=== PATIENT | male | born 1945 | race Caucasian/White ===

== ENCOUNTER → 2021-02-19 | Outpatient (CLI) | payer OTHER ==
--- NOTE | 2021-02-19 12:13 | 2DMMODE ---
[facility] [place] [address] 2 D/M-MODE ECHOCARDIOGRAM Name: MARLIN COVINGTON Room #: REG [facility] Vitor#: [id number] Admission: 02/19/21 Attend Phys: Cb Lopez Discharge: Date of : 45 Report #: [id number] THIS REPORT FOR: cc: Miguel Zelaya MD, Michael D. MD Santiago, Patrick MD [facility] ~ APPROVED REPORT Study performed: 02/19/2021 10:33:12 EXAM: Comprehensive 2D, Doppler, and color-flow Echocardiogram Patient Location: Out-Patient Room #: 2 Status: routine BSA: 2.11 HR: 71 bpm BP: 132/74 mmHg Rhythm: NSR Other Information Study Quality: Good Indications CAD 2D Dimensions RVDd: 40.46 mm IVSd: 9.63 (7-11mm) LVOT Diam: 22.49 (18-24mm) LVDd: 41.29 mm PWd: 9.39 (7-11mm) Ascending Ao: 36.43 (22-36mm) LVDs: 28.48 (25-40mm) Left Atrium: 37.06 (27-40mm) Aortic Root: 32.49 mm IVC: 18.00 mm Volumes Left Atrial Volume (Systole) Single Plane 4CH: 30.43 mL Single Plane 2CH: 38.64 mL LA ESV Index: 19.00 mL/m2 Aortic Valve AoV Peak Christiano.: 1.05 m/s AO Peak Gr.: 4.42 mmHg LVOT Max P.51 mmHg LVOT Max V: 0.79 m/s MARY Vmax: 2.99 cm2 [facility] [address] [place] [address] 2 D/M-MODE ECHOCARDIOGRAM Name: MARLIN COVINGTON ИРИНА Room #: REG [facility]#: [id number] Admission: 02/19/21 Attend Phys: Cb Arredondo Discharge: Date of : 45 Report #: [id number] Mitral Valve MV Decel. Time: 266.93 ms MV PHT: 77.41 ms IVRT: 119.95 ms Pulmonary Valve PV Peak Christiano.: 1.29 m/s PV Peak Gr.: 6.68 mmHg Pulmonary Vein P Vein S: 0.42 m/s P Vein A: 0.30 m/s P Vein D: 0.25 m/s P Vein A Dur.: 110.7 msec P Vein S/D Ratio: 1.68 Tricuspid Valve TR Peak Christiano.: 2.38 m/s TR Peak Gr.: 22.70 mmHg PA Pressure: 28.00 mmHg Left Ventricle The left ventricle is normal size. There is normal LV segmental wall motion. There is normal left ventricular wall thickness. The left ventricular systolic function is normal. The left ventricular ejection fraction is within the normal range. LVEF is 55-60%. Grade I - abnormal relaxation pattern. Right Ventricle The right ventricle is normal size. The right ventricular systolic function is normal. Atria The left atrium size is normal. The right atrium size is normal. Aortic Valve The aortic valve is normal in structure. The Aortic valve is sclerotic. No aortic regurgitation is present. There is no aortic valvular stenosis. Mitral Valve The mitral valve is normal in structure. Trace mitral regurgitation. No evidence of mitral valve stenosis. Tricuspid Valve The tricuspid valve is normal in structure. There is trace tricuspid regurgitation. Estimated PAP 28 mmHg. There is no pulmonary [address] [address] 2 D/M-MODE ECHOCARDIOGRAM Name: MARLIN COVINGTON ИРИНА Room #: REG CL [facility]#: [id number] Admission: 02/19/21 Attend Phys: Cb Arredondo Discharge: Date of : 45 Report #: [id number] hypertension. Pulmonic Valve The pulmonary valve is normal in structure. There is no pulmonic valvular regurgitation. Great Vessels The aortic root is normal in size. IVC is normal in size and collapses >50% with inspiration. Pericardium There is no pericardial effusion. <Conclusion> Normal left ventricular size/wall thickness Ejection fraction 55% Grade 1 diastolic dysfunction Normal right ventricular size/function Normal atrial size Color-flow Doppler study was performed of the aortic/mitral/tricuspid/pulmonary valve Mild aortic valve sclerosis without stenosis Normal mitral valve structure and function Trace tricuspid valve insufficiency Pulmonary systolic pressure estimated 28 mmHg No pericardial effusion Normal aortic root size <ELECTRONICALLY SIGNED> By: Arnulfo Villaseñor MD, FACC 02/19/21 121 11 11 Arnulfo Villaseñor MD, FACC /INF
== END ==
LOC: CV 10:53
PROVIDERS: ATTEND Chiropractor
DX: I51.89 Other ill-defined heart diseases (principal); I25.10 Atherosclerotic heart disease of native coronary artery without angina pectoris